=== PATIENT | male | born 1950 | race Caucasian/White ===

== ENCOUNTER → 2018-04-02 | Outpatient (CLI) | payer MEDICARE ==
--- NOTE | 2018-04-02 10:04 | FL ---
EXAMINATION TYPE: FL barium swallow DATE OF EXAM: 04/02/2018 CLINICAL HISTORY: Pill dysphagia TECHNIQUE: A double contrast esophagram is performed utilizing air and barium. A total of 1 minute and 38 seconds of fluoroscopic time was utilized during procedure. 38 fluoroscopic images were saved on the examination. COMPARISON: None FINDINGS: The esophagus shows normal motility and emptying into the stomach. There is posterior impr ession on the esophagus by a cricopharyngeal bar noted on image 16/38. There is a very small hiatal h ernia seen with resulting in minimal gastroesophageal reflux in the supine portion of the examination . No stricture is identified. A trace degree of laryngeal penetration is seen on the examination. No connie aspiration is identified. IMPRESSION: 1. 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 2. Trace laryngeal penetration. No connie aspiration. Speech therapy consultation and modified video s wallow examination could be considered. 3. Small anterior osteophytes projecting from the C4-C7 levels minimally impressing upon the posterio r esophagus that may partially contribute to the patient's pill dysphasia. 4. There is small hiatal hernia and mild gastroesophageal reflux.
== END ==
LOC: RADFLWHC 08:35
PROVIDERS: ATTEND Otolaryngology
DX: K21.9 Gastro-esophageal reflux disease without esophagitis (principal); K44.9 Diaphragmatic hernia without obstruction or gangrene
CPT/HCPCS: 74220

== ENCOUNTER → 2019-03-15 | Outpatient (CLI) | payer MEDICARE ==
--- NOTE | 2019-03-15 12:48 | NM ---
EXAMINATION TYPE: NM bone 3 phase DATE OF EXAM: 03/15/2019 COMPARISON: NONE HISTORY: Increasing left knee pain for 2 months per patient. History of squamous cell cancer of scalp . History of left knee replacement surgery 3 years ago. DJD per order. Triple phase bone scintigraphy was performed following the injection of 23.1 mCi Tc 99m MDP. Immedia te images and 3 hours post injection images acquired. Triple phase imaging of bilateral knees was acq uired. Delayed phase whole body imaging in anterior and posterior projections acquired. FINDINGS: There is no significant abnormal accumulation of radiotracer to suggest metastatic disease to the bon e or other significant abnormality on delayed phase whole body imaging. Some urine leak below level o f bladder is noted. Arterial and soft tissue phase images show increased radiotracer uptake surrounding the left knee pro sthesis. The right side fairly diffusely with delayed phase images showing similar findings. Mild upt don at right knee is present products of degenerative change is prominent versus left knee. IMPRESSION: As above, triple phase radiotracer uptake surrounding prosthesis is nonspecific and can b e seen with prosthetic infection. Correlation with tagged white blood cell scan and clinical correlat ion is advised.
== END | disposition home or self-care (01) ==
LOC: RADNMMAIN 07:25
PROVIDERS: ATTEND Orthopaedic Surgery
DX: Z47.1 Aftercare following joint replacement surgery (principal); M17.12 Unilateral primary osteoarthritis, left knee; Z96.652 Presence of left artificial knee joint
CPT/HCPCS: 78315; A9503

== ENCOUNTER → 2019-03-21 | Outpatient (CLI) | payer MEDICARE ==
--- NOTE | 2019-03-22 09:17 | NM ---
EXAMINATION TYPE: NM WBC limited DATE OF EXAM: 03/22/2019 COMPARISON: 3 phase bone scan 6 days ago HISTORY: Left knee pain for 2 months after joint replacement 3 years ago. TECHNIQUE: Following administration of 19.9 mCi Tc99m Ceretec. Images obtained 4 hour(s) and 18 rosy r(s) post injection. Imaging is obtained of the bilateral knees multiple projections. FINDINGS: Lucency from metallic prosthesis left knee is noted. Nuclear medicine white blood cell imaging shows no suspicious increased radiotracer uptake surrounding left knee prosthesis out of proportion to oppo site right knee or more prominent versus three-phase bone scan to suggest acute infection. IMPRESSION: As above. No evidence for abnormal tracer activity.
== END | disposition home or self-care (01) ==
LOC: RADNMMAIN 07:44
PROVIDERS: ATTEND Orthopaedic Surgery
DX: M17.12 Unilateral primary osteoarthritis, left knee (principal); Z47.1 Aftercare following joint replacement surgery; Z96.652 Presence of left artificial knee joint
CPT/HCPCS: 78805; A9569

== ENCOUNTER → 2019-04-12 | Outpatient (CLI) | payer MEDICARE ==
--- NOTE | 2019-04-12 07:40 | US ---
EXAMINATION TYPE: US duplex aorta DATE OF EXAM: 04/12/2019 COMPARISON: NONE CLINICAL HISTORY: Z13.6 screening for cardiovascular disorders. EXAM MEASUREMENTS: Abdominal Aorta: Proximal: 2.2cm Mid: 2.3cm Distal: 1.6cm Bifurcation: obscured by overlying bowel gas Patient has large abdomen and overlying bowel gas, technically difficult study. Suboptimal study as aorta not successfully visualized through the bifurcation. IMPRESSION: Suboptimal study but visualized portion of aorta shows no greater than 3.0 cm aneurysm.
== END | disposition home or self-care (01) ==
LOC: RADUSWWP 07:06
PROVIDERS: ATTEND Internal Medicine
DX: Z13.6 Encounter for screening for cardiovascular disorders (principal)
CPT/HCPCS: 93979

== ENCOUNTER 2020-09-06 09:36 | Day surgery (SDC) | payer MEDICARE ==
[2020-09-04 12:13] VITALS: BMI 32.1
[~2020-09-06 09:36] MED LIST: LACTATED RINGERS 1,000 ML IV SCH; LIDOCAINE 1% (10MG/ML) FOR IV START INTRADERMA PRN
[2020-09-06 10:04] VITALS: TEMP 97.7
[2020-09-06] MEDS ORDERED: LACTATED RINGERS 1,000 ML IV ONE (10:04)
[2020-09-06] MEDS ORDERED: PROPOFOL 10 MG/ML 20 ML VIAL IV ONE (10:56)
[2020-09-06] MEDS ORDERED: LIDOCAINE 1% INJ 10MG/ML (20 ML MDV) ONE (10:56)
--- NOTE | 2020-09-06 10:59 | P.GSHP ---
History of Present Illness H&P Date: 09/06/20 Chief Complaint: Screening colonoscopy This a 69-year-old male presents today for colonoscopy. Patient's last colonoscopy was over 15 years ago. He denies a significant GI complaints. Past Medical History Past Medical History: Cancer, Osteoarthritis (OA), Seizure Disorder Additional Past Medical History / Comment(s): COVID 01/2020, hx hiatal hernia/reflux yrs ago, scaly scalp, hx skin cancer on scalp, had inflammation of left knee after replacement surgery-"transient arthritis inflammation" History of Any Multi-Drug Resistant Organisms: None Reported Past Surgical History: Joint Replacement Additional Past Surgical History / Comment(s): left knee replacement, Mohs surgery to remove skin cancer from scalp, EGD, colonocopy Past Anesthesia/Blood Transfusion Reactions: Motion Sickness Additional Past Anesthesia/Blood Transfusion Reaction / Comment(s): seasick once, Smoking Status: Never smoker - Past Family History Father Family Medical History: Cancer Additional Family Medical History / Comment(s): lung Brother(s) Family Medical History: Cancer Sister(s) Family Medical History: Cancer, Deep Vein Thrombosis (DVT) Additional Family Medical History / Comment(s): pancreatic Medications and Allergies Home Medications Medication Instructions Recorded Confirmed Type Latanoprost/Pf [Latanoprost 0.005% 1 drop BOTH EYES HS 04/14/19 09/04/20 History Eye Drop] Cholecalciferol [Vitamin D3 (25 50 mcg PO DAILY 09/04/20 09/04/20 History Mcg = 1000 Iu)] Ibuprofen [Motrin Ib] 200 mg PO DIRECTED PRN 09/04/20 09/04/20 History Turmeric Root Extract [Turmeric] 500 mg PO DAILY 09/04/20 09/04/20 History Allergies Allergy/AdvReac Type Severity Reaction Status Date / Time No Known Allergies Allergy Verified 09/04/20 11:59 Surgical - Exam Vital Signs Temp Pulse Resp BP Pulse Ox 97.7 F 78 18 170/84 98 09/06/20 10:03 09/06/20 10:03 09/06/20 10:03 09/06/20 10:03 09/06/20 10:03 - General well developed, well nourished, no distress - Eyes PERRL - ENT normal pinna - Neck no masses - Respiratory normal expansion - Cardiovascular Rhythm: regular - Abdomen Abdomen: soft, non tender Assessment and Plan Assessment: We'll perform screening colonoscopy
--- NOTE | 2020-09-06 11:15 | P.OP ---
Date of Procedure: 09/06/20 Preoperative Diagnosis: Screening colonoscopy Postoperative Diagnosis: Normal colon Procedure(s) Performed: Colonoscopy Anesthesia: MAC Surgeon: Kale Killian Pathology: none sent Condition: stable Disposition: PACU Description of Procedure: PROCEDURE: The patient was placed on the endoscopy table in the lateral position. Digital rectal examination was performed which revealed no abnormalities. The prostate was symmetrical without nodules. Flexible colonoscope was then placed in the patient's anus and passed throughout the entire colon. The ileocecal valve was visualized. The cecum, ascending, transverse, descending and sigmoid colon were normal. The rectum was normal as well. There were no masses, polyps or diverticula noted in the entire colon. SUMMARY OF FINDINGS: Normal colonoscopy.
[2020-09-06 11:24] VITALS: RESP 16
[2020-09-06 11:59] VITALS: BP 155/74; PULSE 88
== END 2020-09-06 11:59 | disposition home health service (06) ==
LOC: ORWHC2ENDO 09:36
PROVIDERS: ATTEND Surgery
DX: Z12.11 Encounter for screening for malignant neoplasm of colon (principal); M19.90 Unspecified osteoarthritis, unspecified site; G40.909 Epilepsy, unspecified, not intractable, without status epilepticus; Z85.828 Personal history of other malignant neoplasm of skin; Z86.16 Personal history of COVID-19; Z79.899 Other long term (current) drug therapy; K44.9 Diaphragmatic hernia without obstruction or gangrene
CPT/HCPCS: J2001; J2704; G0121; 45378

== ENCOUNTER 2021-09-30 09:11 | Inpatient (IN) | payer MEDICARE ==
[2021-09-30] MEDS ORDERED: SODIUM CHLORIDE 0.9% 500 ML 500 ML IV STA (09:27)
[2021-09-30 10:03] LABS: ALT 21 U/L (4-49); AST 28 U/L (17-59); African American GFR (CKD) >90 (>60 ml/min/1.73 sqM); Albumin 3.8 g/dL (3.5-5.0); Alkaline Phosphatase 84 U/L (38-126); Anion Gap 6 mmol/L; Blood Urea Nitrogen 20 mg/dL (9-20); Calcium 8.9 mg/dL (8.4-10.2); Carbon Dioxide 25 mmol/L (22-30); Chloride 105 mmol/L (98-107); Glucose 208 mg/dL (74-99); Non-African American GFR(CKD) 89 (>60 ml/min/1.73 sqM); Potassium 4.3 mmol/L (3.5-5.1); Sodium 136 mmol/L (137-145); Total Bilirubin 0.3 mg/dL (0.2-1.3)
--- NOTE | 2021-09-30 10:06 | ED ---
General Adult HPI - General Chief complaint: Neuro Symptoms/Deficit Stated complaint: Facial Droop Time Seen by Provider: 09/30/21 09:18 Source: patient, RN notes reviewed, old records reviewed Mode of arrival: ambulatory Limitations: no limitations - History of Present Illness Initial comments: 70-year-old male presenting with left-sided facial droop and numbness which she noted yesterday afternoon proximately 21 hours prior to arrival. He denies he adache. Denied vision changes. States it was difficult for him to close his left eye. He denies speech abnormality. Denies limb weakness or numbness. No previous history of CVA. No chest pain. No fever. - Related Data Home Medications Medication Instructions Recorded Confirmed Latanoprost/Pf [Latanoprost 0.005% 1 drop BOTH EYES HS 04/14/19 09/04/20 Eye Drop] Cholecalciferol [Vitamin D3 (25 50 mcg PO DAILY 09/04/20 09/04/20 Mcg = 1000 Iu)] Ibuprofen [Motrin Ib] 200 mg PO DIRECTED PRN 09/04/20 09/04/20 Turmeric Root Extract [Turmeric] 500 mg PO DAILY 09/04/20 09/04/20 Allergies Allergy/AdvReac Type Severity Reaction Status Date / Time No Known Allergies Allergy Verified 09/30/21 09:17 Review of Systems ROS Statement: Those systems with pertinent positive or pertinent negative responses have been documented in the HPI. ROS Other: All systems not noted in ROS Statement are negative. Past Medical History Past Medical History: Cancer, Osteoarthritis (OA), Seizure Disorder Additional Past Medical History / Comment(s): COVID 01/2020, hx hiatal hernia/reflux yrs ago, scaly scalp, hx skin cancer on scalp, had inflammation of left knee after replacement surgery-"transient arthritis inflammation" History of Any Multi-Drug Resistant Organisms: None Reported Past Surgical History: Joint Replacement Additional Past Surgical History / Comment(s): left knee replacement, Mohs surgery to remove skin cancer from scalp, EGD, colonocopy Past Anesthesia/Blood Transfusion Reactions: Motion Sickness Additional Past Anesthesia/Blood Transfusion Reaction / Comment(s): jessica once, Past Psychological History: No Psychological Hx Reported Smoking Status: Never smoker - Past Family History Father Family Medical History: Cancer Brother(s) Family Medical History: Cancer Sister(s) Family Medical History: Cancer, Deep Vein Thrombosis (DVT) Additional Family Medical History / Comment(s): pancreatic General Exam Limitations: no limitations General appearance: alert, in no apparent distress Head exam: Present: atraumatic, normocephalic Eye exam: Present: normal appearance ENT exam: Present: mucous membranes moist Neck exam: Present: normal inspection Respiratory exam: Present: normal lung sounds bilaterally. Absent: respiratory distress, wheezes Cardiovascular Exam: Present: regular rate, normal rhythm GI/Abdominal exam: Present: soft. Absent: distended, tenderness, guarding Extremities exam: Present: normal inspection, normal capillary refill Neurological exam: Present: alert, oriented X3, motor sensory deficit (left Facial droop, this does not involve the forehead, patient is unable to completely close the left eye.) Skin exam: Present: warm, dry, intact. Absent: cyanosis, diaphoretic Course Vital Signs 09/30/21 09:14 Temperature 97.8 F Pulse Rate 67 Respiratory 20 Rate Blood Pressure 167/82 O2 Sat by Pulse 98 Oximetry EKG Findings - EKG Comments: EKG Findings:: EKG: Sinus rhythm, right bundle branch block, rate of 60 UT interval 196, QRS duration 149, QTC [address] segment elevation. Medical Decision Making - Medical Decision Making 70-year-old male with 20 hours of left-sided facial droop, no other associated symptoms. 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 He receives CT of the brain which is negative for intracranial hemorrhage, normal laboratory testing, he's in sinus rhythm. He will benefit from CVA evaluation as this is an incomplete Yeboah's pulse currently. He's given both aspirin and prednisone in the emergency department and will be admitted to [facility]. - Lab Data Result diagrams: 09/30/21 09:34 09/30/21 09:34 Lab Results 09/30/21 09/30/21 09/30/21 Range/Units 09:34 09:34 09:34 WBC 5.2 (3.8-10.6) k/uL RBC 4.30 (4.30-5.90) m/uL Hgb 13.9 (13.0-17.5) gm/dL Hct 39.9 (39.0-53.0) % MCV 92.8 (80.0-100.0) fL MCH 32.4 (25.0-35.0) pg MCHC 34.9 (31.0-37.0) g/dL RDW 12.8 (11.5-15.5) % Plt Count 233 (150-450) k/uL MPV 8.0 Neutrophils % 51 % Lymphocytes % 35 % Monocytes % 6 % Eosinophils % 5 % Basophils % 2 % Neutrophils # 2.7 (1.3-7.7) k/uL Lymphocytes # 1.8 (1.0-4.8) k/uL Monocytes # 0.3 (0-1.0) k/uL Eosinophils # 0.3 (0-0.7) k/uL Basophils # 0.1 (0-0.2) k/uL PT 9.5 (9.0-12.0) sec INR 0.8 (<1.2) APTT 22.7 (22.0-30.0) sec Sodium 136 L (137-145) mmol/L Potassium 4.3 (3.5-5.1) mmol/L Chloride 105 (98-107) mmol/L Carbon Dioxide 25 (22-30) mmol/L Anion Gap 6 mmol/L BUN 20 (9-20) mg/dL Creatinine 0.84 (0.66-1.25) mg/dL Est GFR (CKD-EPI)AfAm >90 (>60 ml/min/1.73 sqM) Est GFR (CKD-EPI)NonAf 89 (>60 ml/min/1.73 sqM) Glucose 208 H (74-99) mg/dL Calcium 8.9 (8.4-10.2) mg/dL Total Bilirubin 0.3 (0.2-1.3) mg/dL AST 28 (17-59) U/L ALT 21 (4-49) U/L Alkaline Phosphatase 84 (38-126) U/L Troponin I (0.000-0.034) ng/mL Total Protein 7.0 (6.3-8.2) g/dL Albumin 3.8 (3.5-5.0) g/dL 09/30/21 Range/Units 09:34 WBC (3.8-10.6) k/uL RBC (4.30-5.90) m/uL Hgb (13.0-17.5) gm/dL Hct (39.0-53.0) % MCV (80.0-100.0) fL MCH (25.0-35.0) pg MCHC (31.0-37.0) g/dL RDW (11.5-15.5) % Plt Count (150-450) k/uL MPV Neutrophils % % Lymphocytes % % Monocytes % % Eosinophils % % Basophils % % Neutrophils # (1.3-7.7) k/uL Lymphocytes # (1.0-4.8) k/uL Monocytes # (0-1.0) k/uL Eosinophils # (0-0.7) k/uL Basophils # (0-0.2) k/uL PT (9.0-12.0) sec INR (<1.2) APTT (22.0-30.0) sec Sodium (137-145) mmol/L Potassium (3.5-5.1) mmol/L Chloride (98-107) mmol/L Carbon Dioxide (22-30) mmol/L Anion Gap mmol/L BUN (9-20) mg/dL Creatinine (0.66-1.25) mg/dL Est GFR (CKD-EPI)AfAm (>60 ml/min/1.73 sqM) Est GFR (CKD-EPI)NonAf (>60 ml/min/1.73 sqM) Glucose (74-99) mg/dL Calcium (8.4-10.2) mg/dL Total Bilirubin (0.2-1.3) mg/dL AST (17-59) U/L ALT (4-49) U/L Alkaline Phosphatase (38-126) U/L Troponin I <0.012 (0.000-0.034) ng/mL Total Protein (6.3-8.2) g/dL Albumin (3.5-5.0) g/dL Disposition Clinical Impression: Facial droop Disposition: ADMITTED IP TO THIS HOSP Condition: Stable Is patient prescribed a controlled substance at d/c from ED?: No Referrals: Yara Fritz MD [Primary Care Provider] - 1-2 days Time of Disposition: 11:21
[2021-09-30 10:11] LABS: Basophils # (A) 0.1 k/uL (0-0.2); Basophils % (A) 2 %; Eosinophils # (A) 0.3 k/uL (0-0.7); Eosinophils % (A) 5 %; HCT 39.9 % (39.0-53.0); HGB 13.9 gm/dL (13.0-17.5); Lymphocytes # (A) 1.8 k/uL (1.0-4.8); Lymphocytes % (A) 35 %; MCH 32.4 pg (25.0-35.0); MCHC 34.9 g/dL (31.0-37.0); MCV 92.8 fL (80.0-100.0); Monocytes # (A) 0.3 k/uL (0-1.0); Monocytes % (A) 6 %; Neutrophils # (A) 2.7 k/uL (1.3-7.7); Neutrophils % (A) 51 %; Platelet Count 233 k/uL (150-450); RDW 12.8 % (11.5-15.5); WBC 5.2 k/uL (3.8-10.6)
--- NOTE | 2021-09-30 10:15 | CT ---
EXAMINATION TYPE: CT brain wo con DATE OF EXAM: 09/30/2021 HISTORY: Left eye staying open since yesterday, facial droop this am. Acute onset neuro deficit. CT DLP: 1099.6 mGycm. Automated Exposure Control for Dose Reduction was Utilized. TECHNIQUE: CT scan of the head is performed without contrast. COMPARISON: None. FINDINGS: There is no acute intracranial hemorrhage or midline shift identified. Ventricles and sul ci within normal limits in size for patient's age. Barba-white matter differentiation maintained. The globes are intact and the visualized sinuses are clear. IMPRESSION: No acute intracranial hemorrhage or midline shift.
[2021-09-30 10:16] LABS: INR 0.8 (<1.2); Partial Thromboplastin Time 22.7 sec (22.0-30.0); Prothrombin Time 9.5 sec (9.0-12.0)
[2021-09-30] MEDS ORDERED: predniSONE 20 MG TAB PO STA (10:32)
[2021-09-30] MEDS ORDERED: PANTOPRAZOLE 40 MG/10 ML VIAL IVP STA (10:32)
[2021-09-30] MEDS ORDERED: ASPIRIN 325 MG TAB PO STA (10:32)
[2021-09-30 11:23] VITALS: RESP 18
--- NOTE | 2021-09-30 12:20 | P.HPIM ---
History of Present Illness H&P Date: 09/30/21 History of Presenting Illness: Patient is a very pleasant 70-year-old male with a past medical history of hypertension and hyperlipidemia. He presented to the emergency department with a chief complaint of left-sided facial drooping. Patient reports he initially noted some difficulties closing his left eye yesterday and reports that today he noticed a little bit of numbness in the corner of his mouth and when he went to meet his daughter she noticed the left-sided facial drooping. Patient denies having any headache, lightheadedness, dizziness, changes in his vision or h earing, dysphagia, difficulties with or changes in his speech, chest pain, palpitations, shortness of breath, or experiencing any numbness/tingling/weakness in his extremities. Patient also denies having any history of TIA or CVA and denies any recent known viral infection or rash. Reports symptoms with left eye began greater than 24 hours ago. Patient underwent full evaluation in the emergency department. CBC, CMP, and coags all normal findings. Troponin was negative at less than 0.012. EKG revealed normal sinus rhythm with a right bundle branch block. CT head negative for acute intercranial process. Patient was admitted under our services with consult neurology. Review of systems: Pertinent positives and negatives as discussed in HPI, a complete review of systems was performed and all other systems are negative. Physical exam: Vital signs reviewed and stable. General: Nontoxic, no distress and appears stated age. Derm: Skin warm and dry, normal coloration for ethnicity. Head: Atraumatic, normocephalic. Patient has left-sided facial droop noted involving left eye, left side of face, and mouth. Patient with difficulty closing left eye. Eyes: EOMs intact, no lid lag, and anicteric sclera. Patient with difficulty closing left eye completely. Mouth: no lip lesions, mucus membranes moist Cardiovascular: regular rate and rhythm with normal S1S2, no murmur, positive posterior tibial pulses bilaterally, and cap refill < 2 seconds. Lungs: Respirations even, regular, and unlabored on room air. Lungs CTA bilaterally, no rhonchi, no rales, no wheezing, and no accessory muscle usage. Abdominal: soft, nontender to palpation, no guarding, no appreciable organomeg rambo Ext: ROM intact. No gross muscle atrophy, no edema, no contractures Neuro: Speech clear, Patient has left-sided facial droop noted involving left eye, left side of face, and mouth. Patient with difficulty closing left eye. Sensation and movement equal and intact to bilateral upper and lower ex tremities. Psych: Alert and oriented to person, place, time, and situation. Appropriate and pleasant affect. Assessment and Plan of Care: Left-sided facial droop -Likely resulting from Yeboah's palsy as initially started out with difficulty closing left eye, however little to no forehead involvement at this time therefore cannot rule out CVA. 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 -Artificial tears as needed for dry eyes. -Neurology consulted, appreciate further recommendations Hypertension -Monitor vital signs and continue daily medication regimen with hydrochlorothiaz luis fernando 12.5 mg daily. Hyperlipidemia -Continue daily medication regimen with atorvastatin. The patient is admitted with an anticipated greater than 2 midnight stay for evaluation of left-sided facial droop. CODE STATUS: Full code DVT prophylaxis: Lovenox Discussed with: Patient and RN Anticipated discharge date: Likely tomorrow Anticipated discharge place: Home A total of 44 minutes was spent on the care of this complex patient more than 50% of the time was spent in counseling and care coordination. Past Medical History Past Medical History: Cancer, Osteoarthritis (OA), Seizure Disorder Additional Past Medical History / Comment(s): COVID 01/2020, hx hiatal hernia/reflux yrs ago, scaly scalp, hx skin cancer on scalp, had inflammation of left knee after replacement surgery-"transient arthritis inflammation" History of Any Multi-Drug Resistant Organisms: None Reported Past Surgical History: Joint Replacement Additional Past Surgical History / Comment(s): left knee replacement, Mohs surgery to remove skin cancer from scalp, EGD, colonocopy Past Anesthesia/Blood Transfusion Reactions: Motion Sickness Additional Past Anesthesia/Blood Transfusion Reaction / Comment(s): seasick once, Past Psychological History: No Psychological Hx Reported Smoking Status: Never smoker - Past Family History Father Family Medical History: Cancer Brother(s) Family Medical History: Cancer Sister(s) Family Medical History: Cancer, Deep Vein Thrombosis (DVT) Additional Family Medical History / Comment(s): pancreatic Medications and Allergies Home Medications Medication Instructions Recorded Confirmed Type Latanoprost/Pf [Latanoprost 0.005% 1 drop BOTH EYES HS 04/14/19 09/30/21 History Eye Drop] Cholecalciferol [Vitamin D3 (25 50 mcg PO DAILY 09/04/20 09/30/21 History Mcg = 1000 Iu)] Atorvastatin [Lipitor] 10 mg PO HS 09/30/21 09/30/21 History hydroCHLOROthiazide 12.5 mg PO DAILY 09/30/21 09/30/21 History Allergies Allergy/AdvReac Type Severity Reaction Status Date / Time No Known Allergies Allergy Verified 09/30/21 13:35 Physical Exam Vitals: Vital Signs Temp Pulse Resp BP Pulse Ox 09/30/21 11:19 61 18 149/84 98 09/30/21 09:14 97.8 F 67 20 167/82 98 Intake and Output 09/29/21 09/30/21 09/30/21 22:59 06:59 14:59 Other: Weight 95.254 kg Results CBC & Chem 7: 09/30/21 09:34 09/30/21 09:34 Labs: Abnormal Lab Results - Last 24 Hours (Table) 09/30/21 Range/Units 09:34 Sodium 136 L (137-145) mmol/L Glucose 208 H (74-99) mg/dL
[2021-09-30] MEDS ORDERED: ARTIFICIAL TEARS-HYPROMELLOSE DROPS 15 ML BTL LEFT EYE PRN (12:21)
[2021-09-30] MEDS ORDERED: LATANOPROST 0.005% OPHTH DROPS 2.5 ML BTL BOTH EYES SCH (21:00)
[2021-09-30] MEDS ORDERED: ATORVASTATIN 40 MG TAB PO SCH (21:00)
[2021-09-30] MEDS ORDERED: ATORVASTATIN 10 MG TAB PO SCH (21:00)
[2021-09-30] MEDS: valACYclovir HCL 1,000 MG TABLET PO SCH (21:03)
--- NOTE | 2021-10-01 07:58 | P.CNNES ---
History of Present Illness Consult date: 09/30/21 Requesting physician: Lion Littlejohn Reason for Consult: Left-sided facial droop History of Present Illness: Patient is a 70-year-old male came to the hospital today at 9:11 AM for evaluation of left facial weakness. Patient states that yesterday he was visiting his sister, when he felt some weird, odd, funny feeling in the left eye. He went to bed, woke up at 5 AM for work. He went to work at 5:30 AM. At 7:30 AM he went to pick his grandkids. There he met his daughter, who noticed patient was having left facial weakness. He came to the ER for further evaluation. Patient states that today at 4 PM while he was in the ER, he was reading on the phone, his vision got blurred and started seeing double vision, which lasted for about half an hour to an hour. He also noticed slight fluttering of the left eyelid. Today between 8 AM to 4 PM, he also noticed some numbness of the left corner of the mouth. Now the symptom has resolved. Patient was started on prednisone, and his notices that his face is already getting better. Patient denies any new hearing difficulty, although he does have chronic hearing loss on the left ear. No change in the hearing lately. No change in the taste sensation, excessive lacrimation, or hyperacusis. Patient states that for last 1 year, he has been having some breakthrough occipital in sensation when he is washing his hair. It comes and goes. He does have history of skin cancers. Vital signs on arrival blood pressure 167/82, pulse is 67 temperature 97.8. Blood test shows normal CBC, PT/PTT, sodium 136 potassium 4.3, normal renal functions, normal hepatic panel and troponin. Patient does have hyperlipidemia with last lipid panel showing cholesterol 2:30, LDL 147 on 09/12/2020. CT head showed no acute intracranial hemorrhage or midline shift. I personally reviewed CT head, and agree with the findings. No acute process. Visualized paranasal sinuses are clear. EKG with sinus rhythm. Right bundle-branch block. Patient's home medications include Lipitor 10 mg, hydrochlorothiazide 12.5 mg, vitamin D. He does not take any antiplatelet medication at home. Denies diabetes. He does have hypertension. Never smoked. Review of Systems All 14 points of review systems reviewed, unremarkable except as mentioned in HPI. Past Medical History Past Medical History: Cancer, Osteoarthritis (OA), Seizure Disorder Additional Past Medical History / Comment(s): COVID 01/2020, hx hiatal hernia/reflux yrs ago, scaly scalp, hx skin cancer on scalp, had inflammation of left knee after replacement surgery-"transient arthritis inflammation" History of Any Multi-Drug Resistant Organisms: None Reported Past Surgical History: Joint Replacement Additional Past Surgical History / Comment(s): left knee replacement, Mohs surgery to remove skin cancer from scalp, EGD, colonocopy Past Anesthesia/Blood Transfusion Reactions: Motion Sickness Additional Past Anesthesia/Blood Transfusion Reaction / Comment(s): seasick once, Past Psychological History: No Psychological Hx Reported Smoking Status: Never smoker - Past Family History Father Family Medical History: Cancer Brother(s) Family Medical History: Cancer Additional Family Medical History / Comment(s): lung cancer Sister(s) Family Medical History: Cancer, Deep Vein Thrombosis (DVT) Additional Family Medical History / Comment(s): pancreatic Medications and Allergies Home Medications Medication Instructions Recorded Confirmed Type Latanoprost/Pf [Latanoprost 0.005% 1 drop BOTH EYES HS 04/14/19 09/30/21 History Eye Drop] Cholecalciferol [Vitamin D3 (25 50 mcg PO DAILY 09/04/20 09/30/21 History Mcg = 1000 Iu)] Atorvastatin [Lipitor] 10 mg PO HS 09/30/21 09/30/21 History hydroCHLOROthiazide 12.5 mg PO DAILY 09/30/21 09/30/21 History Allergies Allergy/AdvReac Type Severity Reaction Status Date / Time No Known Allergies Allergy Verified 09/30/21 13:35 Physical Examination - Vital Signs Vital Signs: Vital Signs Temp Pulse Pulse Resp BP BP Pulse Ox 09/30/21 18:54 79 09/30/21 18:13 79 18 158/77 96 09/30/21 17:06 65 18 150/83 98 09/30/21 16:22 68 18 137/84 96 09/30/21 14:09 62 18 135/85 96 09/30/21 12:23 59 L 18 148/82 96 09/30/21 11:19 61 18 149/84 98 09/30/21 09:14 97.8 F 67 20 167/82 98 Intake and Output 09/30/21 09/30/21 09/30/21 06:59 14:59 22:59 Other: Voiding Method Toilet # Voids 1 Weight 95.254 kg Patient is an elderly male, very pleasant, in no acute distress. Patient is alert awake oriented to time place and person. Speech and language functions are normal. Patient can name and repeat very well. No aphasia or dysarthria. Attention, concentration and fund of knowledge is adequate. On cranial nerve examination, pupils are equal, round and reacting to light, visual fenton are full on confrontation, with no neglect on double simultaneous stimulation. His extraocular muscles are intact with no nystagmus. Patient has left facial weakness, mainly involving the lower side. He has weakness of the left eye closure, but his jimmy wrinkling appears normal bilaterally. His tongue protrudes to the midline. Palatal elevation and sensation normal, hearing for finger rubbing is mild to moderately decreased in the right ear, and severely decreased in the left ear, which he claims is chronic. His shoulder shrug normal, facial sensation normal. On muscle strength testing, there is no pronator drift and the strength is normal in arms and legs distally and proximally. Deep tendon reflexes are symmetric and plantars downgoing bilaterally. Sensory to touch is equal with no neglect on double simultaneous stimulation. Cerebellar function showed no ataxia for [id number] testing. No d ysdiadochokinesia. Tone and bulk of muscles normal. Gait normal. On general examination, there is no carotid bruit or murmur, S1-S2 audible. Abdomen is soft nontender. No organomegaly, bowel sounds present. Chest is clear. Peripheral pulses are present. No edema. 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 Patient denies any changes in his taste sensation, hyperacusis. * Transient diplopia and blurred vision, possible due to dry eyes from Yeboah's palsy (less likely TIA) * Hypertension * Hyperlipidemia Plan: * MRI brain without contrast, rule out CVA * ASA 81 mg daily * Lipitor 40 mg daily * Continue Prednisone 60 mg daily for 7 days then decrease by 10 mg daily until off * Valtrex 1 gram tid for 7 days * Neurologically clear if the MRI comes back negative * Thank you for the consult.
[2021-10-01] MEDS: valACYclovir HCL 1,000 MG TABLET PO SCH (08:35)
[2021-10-01] MEDS ORDERED: hydroCHLOROthiazide 12.5 MG CAP PO SCH (09:00)
[2021-10-01] MEDS ORDERED: ENOXAPARIN 40 MG/0.4 ML SYRINGE SQ SCH (09:00)
[2021-10-01] MEDS ORDERED: predniSONE 20 MG TAB PO SCH (09:00)
[2021-10-01] MEDS ORDERED: CHOLECALCIFEROL 25 MCG (1000 IU) TABLET PO SCH (09:00)
[2021-10-01] MEDS ORDERED: ASPIRIN 325 MG TAB PO SCH (09:00)
[2021-10-01 09:07] VITALS: TEMP 98.4
[2021-10-01 11:02] LABS: Chol/HDL Ratio 2.66 Ratio; LDL Cholesterol,Calculated 122.4 mg/dL (0.0-131.0); VLDL Calculation 16.82 mg/dL (5.00-40.00)
[2021-10-01 11:34] VITALS: BP 125/66; PULSE 61
--- NOTE | 2021-10-01 12:31 | P.DS ---
Providers Date of admission: 09/30/21 11:18 Expected date of discharge: 10/01/21 Attending physician: Carmen Hardin DO Consults: 09/30/21 11:19 Consult Physician Routine Consulting Provider: Mk Groves Consult Reason/Comments: Left Sided facial droop Do you want consulting provider notified?: Yes Primary care physician: Yara Fritz MD Hospital Course: 70-year-old male with a past medical history of hypertension and hyperlipidemia. He presented to the emergency department with a chief complaint of left-sided facial drooping. Patient reports he initially noted some difficulties closing his left eye yesterday and reports that today he noticed a little bit of numbness in the corner of his mouth and when he went to meet his daughter she noticed the left-sided facial drooping. Patient denies having any headache, lightheadedness, dizziness, changes in his vision or hearing, dysphagia, difficulties with or changes in his speech, chest pain, palpitations, shortness of breath, or experiencing any numbness/tingling/weakness in his extremities. Patient also denies having any history of TIA or CVA and denies any recent known viral infection or rash. Reports symptoms with left eye began greater than 24 hours ago. Patient underwent full evaluation in the emergency department. CBC, CMP, and coags all normal findings. Troponin was negative at less than 0.012. EKG revealed normal sinus rhythm with a right bundle branch block. CT head negative for acute intercranial process. Patient was admitted under our services with consult neurology. Upon admission patient was seen by neurology. MRI of the brain was done, it was reviewed by neurology who did not feel that he had any acute stroke. Symptoms are mostly consistent with Yeboah's palsy. Patient will be discharged on steroids as well as valacyclovir. He was instructed to tape his eye and put some moisturizing eyedrops before bedtime. He'll be discharged home in stable condition. Patient Condition at Discharge: Stable Plan - Discharge Summary Discharge Rx Participant: No New Discharge Prescriptions: New predniSONE [Deltasone] 20 mg PO DAILY 12 Days #30 tab valACYclovir HCL [Valtrex] 1,000 mg PO TID 5 Days #15 tab Continue Latanoprost/Pf [Latanoprost 0.005% Eye Drop] 1 drop BOTH EYES HS Cholecalciferol [Vitamin D3 (25 Mcg = 1000 Iu)] 50 mcg PO DAILY Atorvastatin [Lipitor] 10 mg PO HS hydroCHLOROthiazide 12.5 mg PO DAILY Discharge Medication List Latanoprost/Pf [Latanoprost 0.005% Eye Drop] 1 drop BOTH EYES HS 04/14/19 [History] Cholecalciferol [Vitamin D3 (25 Mcg = 1000 Iu)] 50 mcg PO DAILY 09/04/20 [History] Atorvastatin [Lipitor] 10 mg PO HS 09/30/21 [History] hydroCHLOROthiazide 12.5 mg PO DAILY 09/30/21 [History] predniSONE [Deltasone] 20 mg PO DAILY 12 Days #30 tab 10/01/21 [Rx] valACYclovir HCL [Valtrex] 1,000 mg PO TID 5 Days #15 tab 10/01/21 [Rx] Follow up Appointment(s)/Referral(s): Yara Fritz MD [Primary Care Provider] - 10/02/21 11:45 am Patient Instructions/Handouts: Yeboah Palsy (DC)
--- NOTE | 2021-10-01 12:41 | MR ---
MR brain without contrast HISTORY: Neuro deficit, acute stroke suspected Multiplanar multisequence imaging through the brain, correlation to CT brain 09/30/2021 There is no restricted diffusion to suggest subacute ischemia. There are expected vascular flow voids . Right vertebral artery may be atrophic. There are subcortical and periventricular hyperintensities on inversion recovery T2-weighted sequences on the right in the right frontal lobe, 3 lesions are pre sent each measuring approximately 5 to 6 mm, smaller subcortical focus present in the right frontal l obe on axial image 25 and also the left frontal lobe measuring 2 mm on axial images #17 and 18, left parietal lobe axial image 19 measuring 3 mm, approximately 20 lesions are present. There is no hemorr marcus or hydrocephalus. Orbits show symmetric appearance. Inflammatory changes are present in the ethm oid air cells. Possible hemangioma in the posterior parietal skull, sagittal image 18. Corpus callosu m, pituitary, cervical medullary junction, cerebellopontine angles are normal. IMPRESSION: Nonspecific white matter demyelination. Mild sinus disease. No evident subacute ischemia.
== END 2021-10-01 12:51 | disposition home or self-care (01) | DRG 74 ==
LOC: EC 09:11 → 3SCARD 11:18
PROVIDERS: ADMIT Internal Medicine; ATTEND Internal Medicine
DX: G51.0 Bell's palsy (principal); H53.2 Diplopia; H91.93 Unspecified hearing loss, bilateral; E78.5 Hyperlipidemia, unspecified; G40.909 Epilepsy, unspecified, not intractable, without status epilepticus; H53.8 Other visual disturbances; I10 Essential (primary) hypertension; M19.90 Unspecified osteoarthritis, unspecified site; I45.10 Unspecified right bundle-branch block; Z80.0 Family history of malignant neoplasm of digestive organs; Z86.16 Personal history of COVID-19; Z96.652 Presence of left artificial knee joint; Z85.828 Personal history of other malignant neoplasm of skin; Z79.899 Other long term (current) drug therapy; Z80.1 Family history of malignant neoplasm of trachea, bronchus and lung; Z83.2 Family history of diseases of the blood and blood-forming organs and certain disorders involving the immune mechanism
CPT/HCPCS: 36415; 70450; 70551; 80053; 80061; 84484; 85025; 85610; 85730; 93005; 96361; 96374; 99285

== ENCOUNTER → 2022-07-18 | Outpatient (CLI) | payer MEDICARE | END | disposition home or self-care (01) | LOC: LABWHC1 14:46 | PROVIDERS: ATTEND Orthopaedic Surgery | DX: Z96.652 Presence of left artificial knee joint (principal) | CPT/HCPCS: 36415; 85652 ==

== ENCOUNTER → 2024-03-08 | Outpatient (CLI) | payer MEDICARE | LOC: CPPFTMAIN 06:58 | PROVIDERS: ATTEND Internal Medicine | DX: J45.909 Unspecified asthma, uncomplicated (principal) | CPT/HCPCS: 94060; 94726; 94729 ==